=== PATIENT | male | born 2000 | race African-American/Black ===

== ENCOUNTER 2020-03-22 17:57 | Emergency (ER) | payer OTHER ==
[~2020-03-22] VITALS: Ht 185.4 cm; Wt 104.3 kg
[2020-03-22 19:44] VITALS: BP 176/84
== END 2020-03-22 20:15 | disposition home or self-care (01) ==
LOC: ER 17:57
DX: S61.211A Laceration without foreign body of left index finger without damage to nail, initial encounter (principal); S61.213A Laceration without foreign body of left middle finger without damage to nail, initial encounter; S61.215A Laceration without foreign body of left ring finger without damage to nail, initial encounter; W26.8XXA Contact with other sharp object(s), not elsewhere classified, initial encounter; Y93.89 Activity, other specified; Y92.89 Other specified places as the place of occurrence of the external cause; Y99.8 Other external cause status

== ENCOUNTER 2020-04-07 18:29 | Emergency (ER) | payer OTHER ==
[~2020-04-07] VITALS: Ht 185.4 cm; Wt 104.3 kg
[2020-04-07 18:35] VITALS: BP 142/82
== END 2020-04-07 19:35 | disposition home or self-care (01) ==
LOC: ER 18:29
DX: S61.213D Laceration without foreign body of left middle finger without damage to nail, subsequent encounter (principal); Z98.890 Other specified postprocedural states; W22.8XXD Striking against or struck by other objects, subsequent encounter